=== PATIENT | female | born 1990 | race Caucasian/White ===

== ENCOUNTER 2023-07-07 22:45 | Emergency (ER) | payer OTHER ==
[2023-07-07 22:57] VITALS: TEMP 98.2
[2023-07-08] MEDS: IBUPROFEN 800 MG TAB PO STA (00:19)
[2023-07-08] MEDS: ACETAMINOPHEN TAB 500 MG TAB PO STA (00:20)
--- NOTE | 2023-07-08 02:15 | ED ---
General Adult HPI - General Chief complaint: Extremity Injury, Upper Stated complaint: Wrist injury Time Seen by Provider: 07/07/23 23:53 Source: patient, RN notes reviewed, old records reviewed Mode of arrival: ambulatory Limitations: no limitations - History of Present Illness Initial comments: Patient is a 33-year-old female with no significant past medical history who presents emergency Department after falling on an outstretched hand. Patient states she tripped and fell while camping. Did not injure herself other than for her right wrist. Denies hitting her head or loss of consciousness. Is complaining of right wrist pain. Thinks she broke it. Denies any numbness or tingling of the right hand. Still can move her fingers without issue. Presents for further evaluation at this time. - Related Data Previous Rx's Medication Instructions Recorded Cyclobenzaprine [Flexeril] 5 mg PO BID PRN 7 Days #14 tablet 07/08/23 Allergies Allergy/AdvReac Type Severity Reaction Status Date / Time No Known Allergies Allergy Verified 07/07/23 22:52 Review of Systems ROS Statement: Those systems with pertinent positive or pertinent negative responses have been documented in the HPI. Review of Systems: CONST: Denies fever EYES: Denies blurry vision ENT: Denies nasal congestion C/V: Denies Chest pain RESP: Denies shortness of breath GI: Denies abdominal pain : Denies dysuria SKIN: Denies rash. MSK: Endorses right wrist pain NEURO: Denies headache ROS Other: All systems not noted in ROS Statement are negative. Past Medical History Past Medical History: No Reported History Past Surgical History: No Surgical Hx Reported Past Psychological History: Anxiety Smoking Status: Vaper Past Alcohol Use History: Occasional General Exam - General Exam Comments Initial Comments: General: Appears in mild distress secondary to right wrist pain. HEAD: Normal with no signs of head trauma. EYES: EOMI ENT: Hearing grossly intact RESPIRATORY: No respiratory distress C/V: Peripheral pulses 2+ intact throughout. ABD: Nondistended EXT: Reduced range of motion of the right wrist secondary to pain. Tenderness palpation over the anatomical snuffbox. Tetanus to palpation over the distal right radial head as well as the is still right ulna. Able to approximate all fingers to thumb. No hand tenderness. No elbow tenderness. Normal range of motion of the right elbow. SKIN: No rashes or lesions observed on exposed skin. NEURO: Alert and oriented 4. Neurovascular intact throughout. Limitations: no limitations Course Vital Signs 07/07/23 07/08/23 22:47 02:21 Temperature 98.2 F Pulse Rate 65 80 Respiratory 22 20 Rate Blood Pressure 106/71 129/76 O2 Sat by Pulse 98 97 Oximetry Procedures - Orthopedic Splinting/Casting Injury #1 Side: right Upper Extremity Injury Location: wrist Upper Extremity Immobilizer: sugar tong splint Additional Comments: Neurovascular intact following the procedure as evident by normal cap refill as well as normal sensation. Medical Decision Making - Medical Decision Making Was pt. sent in by a medical professional or institution (, PA, BLUEPRINT CUTTER, urgent care, hospital, or intermediate...) When possible be specific @ -No Did you speak to anyone other than the patient for history (EMS, parent, family, police, friend...)? What history was obtained from this source @ -No Did you review nursing and triage notes (agree or disagree)? Why? @ -I reviewed and agree with nursing and triage notes Were old charts reviewed (outside hosp., previous admission, EMS record, old EKG, old radiological studies, urgent care reports/EKG's, intermediate records)? Report findings @ -No old charts were reviewed Differential Diagnosis (chest pain, altered mental status, abdominal pain women, abdominal pain men, vaginal bleeding, weakness, fever, dyspnea, syncope, headache, dizziness, GI bleed, back pain, seizure, CVA, palpatations, mental health, musculoskeletal)? @ -Differential Musculoskeletal Muscular strain, contusion, ligament sprain, fracture, arthritis, septic arthritis, bursitis, cellulitis, muscle spasm, nerve compression, DVT, arterial occlusion, herpes zoster, electrolyte abnormality, tumor.... This is not meant to be in all inclusive list EKG interpreted by me (3pts min.). @ -None done X-rays interpreted by me (1pt min.). @ -X-rays of the right wrist and forearm reveal a distal right comminuted radial head fracture as well as an ulnar styloid process fracture. CT interpreted by me (1pt min.). @ -None done U/S interpreted by me (1pt. min.). @ -None done What testing was considered but not performed or refused? (CT, X-rays, U/S, labs)? Why? @ -None What meds were considered but not given or refused? Why? @ -I offered analgesic medications, but patient declined Tylenol threes and Starks. Did accept Motrin and Tylenol. Did you discuss the management of the patient with other professionals (professionals i.e. , PA, BLUEPRINT CUTTER, lab, RT, psych nurse, director social, construction estimator, teacher, chief school finance officer, manager rn case)? Give summary @ -No Was smoking cessation discussed for >3mins.? @ -No Was critical care preformed (if so, how long)? @ -No Were there social determinants of health that impacted care today? How? (Homelessness, low income, unemployed, alcoholism, drug addiction, transportation, low edu. Level, literacy, decrease access to med. care, penitentiary, rehab)? @ -No Was there de-escalation of care discussed even if they declined (Discuss DNR or withdrawal of care, Hospice)? DNR status @ -No What co-morbidities impacted this encounter? (DM, HTN, Smoking, COPD, CAD, Cancer, CVA, ARF, Chemo, Hep., AIDS, mental health diagnosis, sleep apnea, morbid obesity)? @ -None Was patient admitted / discharged? Hospital course, mention meds given and route, prescriptions, significant lab abnormalities, going to OR and other pertinent info. @ -Based on the patient's presentation and physical exam, concern for right wrist fracture. Patient given Tylenol and Motrin. Vital signs within acceptable limits. Neurovascularly intact throughout. X-ray reveals a right radial head fracture as well as a right ulnar styloid process suspected fracture. Discussed results with the patient. She was splinted in a sugar tong splint and given a sling. She was given a starter pack and Tylenol threes. Discussed that she needs to follow-up with orthopedics and she is in agreement this plan. Following splinting, patient does have intact sensation and good capillary refill of the fingertips. I will provide the patient with a prescription for Flexeril. I instructed the patient to follow up with their PCP in the next 1-3 days. I provided contact information for follow up with orthopedics. I explained that the patient should return to the emergency department if they experience any worsening symptoms. Strict return precautions were discussed with the patient. The patient expressed understanding of these instructions. I answered all questions that the patient had. The patient was discharged home in fair condition with their prescriptions and follow up information. Undiagnosed new problem with uncertain prognosis? @ -No Drug Therapy requiring intensive monitoring for toxicity (Heparin, Nitro, Insulin, Cardizem)? @ -No Were any procedures done? @ -Sugar tong splint of the right upper extremity for Wrist fracture Diagnosis/symptom? @ -Fall, right comminuted radial head fracture, right ulnar styloid fracture Acute, or Chronic, or Acute on Chronic? @ -Acute Uncomplicated (without systemic symptoms) or Complicated (systemic symptoms)? @ -Uncomplicated Side effects of treatment? @ -No Exacerbation, Progression, or Severe Exacerbation? @ -No Poses a threat to life or bodily function? How? (Chest pain, [place], [place], pneumonia, PE, COPD, DKA, ARF, appy, cholecystitis, CVA, Diverticulitis, Homicidal, Suicidal, threat to staff... and all critical care pts) @ -No Disposition Clinical Impression: Right wrist fracture, Fall, Right radial head fracture, Fracture of right ulnar styloid Disposition: HOME SELF-CARE Condition: Fair Instructions (If sedation given, give patient instructions): Wrist Fracture in Adults (ED) Prescriptions: Cyclobenzaprine [Flexeril] 5 mg PO BID PRN 7 Days #14 tablet PRN Reason: Pain Is patient prescribed a controlled substance at d/c from ED?: No Referrals: Mis Mitchell DO [Primary Care Provider] - 1-2 days Faisal Mcclendon DO [Doctor of Osteopathic Medicine] - 1-2 days Time of Disposition: 02:05
[2023-07-08] MEDS: ACET/COD 300 MG/30 MG STARTER PACK 6 TAB BTL PO STA (02:19)
[2023-07-08 02:24] VITALS: BP 129/76; PULSE 80; RESP 20
--- NOTE | 2023-07-08 06:37 | XR ---
EXAM: XR Right Wrist Complete, 3 or More Views CLINICAL HISTORY: ITS.REASON XR Reason: fall, wrist pain TECHNIQUE: Frontal, lateral and oblique views of the right wrist. COMPARISON: No relevant prior studies available. FINDINGS: Bones/joints: Comminuted distal radial fracture with extension to the articular surface. Minimally displaced ulnar styloid fracture. No dislocation. Soft tissues: Soft tissue swelling is seen surrounding the wrist. No radiopaque foreign body. IMPRESSION: Comminuted distal radial fracture and ulnar styloid fracture.
--- NOTE | 2023-07-08 06:38 | XR ---
EXAM: XR Right Forearm, 2 Views CLINICAL HISTORY: ITS.REASON XR Reason: fall, wrist pain TECHNIQUE: Frontal and lateral views of the right forearm. COMPARISON: No relevant prior studies available. FINDINGS: Bones/joints: Comminuted intra-articular distal radial fracture. Minimally displaced ulnar styloid fracture. Limited evaluation of the elbow is unremarkable. No dislocation. Soft tissues: Soft tissue swelling is seen at the wrist. IMPRESSION: Distal radial ulnar fracture.
== END 2023-07-08 02:33 | disposition home or self-care (01) ==
LOC: EC 22:45
DX: S52.121A Displaced fracture of head of right radius, initial encounter for closed fracture (principal); S52.611A Displaced fracture of right ulna styloid process, initial encounter for closed fracture; F17.290 Nicotine dependence, other tobacco product, uncomplicated; Z86.59 Personal history of other mental and behavioral disorders; W01.0XXA Fall on same level from slipping, tripping and stumbling without subsequent striking against object, initial encounter
CPT/HCPCS: 29125; 99284